=== PATIENT | male | born 1995 | race Caucasian/White ===

== ENCOUNTER 2021-03-07 11:28 | Observation (INO) ==
[2021-03-07 12:16] LABS: Basophils % 0.2 %; Hematocrit 41.8 % (37.5-50.1); Hemoglobin 14.1 g/dL (12.9-16.9); Immature Granulocytes % 0.5 % (0-4); Lymphocytes # 0.7 K/mcL (0.6-4.6); Lymphocytes % 5.7 %; Mean Corpuscular HGB Conc 33.7 g/dL (31.6-35.5); Mean Corpuscular Hemoglobin 30.9 pg (28.0-33.3); Mean Corpuscular Volume 91.7 fL (83.0-100.0); Monocytes # 1.2 K/mcL (0.0-1.3); Monocytes % 8.8 %; Platelet Count 303 K/mcL (140-400); Red Blood Count 4.56 M/mcL (4.19-5.50); Red Cell Distribution Width 11.5 % (11.5-14.5); Segmented Neutrophils % 84.8 %
[2021-03-07 12:44] LABS: BUN/Creatinine Ratio 18 (6-26); Blood Urea Nitrogen 17 mg/dL (6-20); Calcium 9.5 mg/dL (8.6-10.3); Carbon Dioxide 27 mEq/L (23-29); Chloride 101 mEq/L (98-107); Glucose 185 mg/dL (70-105); Osmolality,Calculated 298 (280-300); Potassium 3.7 mEq/L (3.5-5.1); Sodium 141 mEq/L (136-145); Troponin I < 0.03 ng/mL (< 0.04); eGFR For African Americans > 60 (> 60); eGFR For Non-African Americans > 60 (> 60)
[2021-03-07] MEDS ORDERED: 0.9 % Sodium Chloride 1,000 ML IVC ONE ×3 (13:11→13:16)
[2021-03-07] MEDS ORDERED: Ondansetron ODT 4 MG TAB.RAPDIS SL PRN (13:16)
[2021-03-07] MEDS ORDERED: Acetaminophen 325 MG TABLET PO PRN (13:16)
[2021-03-07] MEDS ORDERED: Naloxone 0.4 MG/ML INJ IVP PRN (13:16)
[2021-03-07] MEDS ORDERED: Mag Hydrox/Al Hydrox/Simeth 30 ML UDC PO PRN (13:16)
[2021-03-07] MEDS ORDERED: MOM Conc 10 ML UD.LIQ PO PRN (13:16)
[2021-03-07] MEDS ORDERED: Melatonin 3 MG TABLET PO PRN (13:16)
[2021-03-07] MEDS ORDERED: levoFLOXacin 750 MG/150 ML 750 MG/150 ML BAG IVPB SCH (13:30)
[2021-03-07 15:59] LABS: Influenza A PCR Negative (Negative); Influenza B PCR Negative (Negative); Resp. Syncytial Virus PCR Negative (Negative); SARS-CoV-2 by PCR (In House) Negative (Negative)
[2021-03-07] MEDS ORDERED: Clindamycin 900 MG/50 ML 900 MG/50 ML IV.SOLN IVPB ONE (18:29)
[2021-03-07] MEDS: Ringers Solution, Lactated 1,000 ML IVC SCH (19:33)
[2021-03-07 20:08] LABS: Amphetamine Screen,Urine Positive ng/mL (Cutoff=1000); Barbiturate Screen,Urine Negative ng/mL (Cutoff=200); Benzodiazepines Screen,Urine Negative ng/mL (Cutoff=200); Cannabinoid Screen,Urine Positive ng/mL (Cutoff = 50); Cocaine Screen,Urine Negative ng/mL (Cutoff= 300); Opiate Screen,Urine Negative ng/mL (Cutoff=300); Phencyclidine Screen,Urine Negative ng/mL (Cutoff=25)
[2021-03-08 01:35] LABS: Hematocrit 38.7 % (37.5-50.1); Mean Corpuscular HGB Conc 33.6 g/dL (31.6-35.5); Mean Corpuscular Hemoglobin 30.5 pg (28.0-33.3); Mean Corpuscular Volume 90.8 fL (83.0-100.0); Mean Platelet Volume 10.4 fL (9.4-12.4); Platelet Count 231 K/mcL (140-400); Red Blood Count 4.26 M/mcL (4.19-5.50); Red Cell Distribution Width 11.4 % (11.5-14.5); White Blood Count 10.7 K/mcL (4.3-11.1)
[2021-03-08 01:53] LABS: BUN/Creatinine Ratio 18 (6-26); Blood Urea Nitrogen 13 mg/dL (6-20); Calcium 8.3 mg/dL (8.6-10.3); Carbon Dioxide 28 mEq/L (23-29); Chloride 99 mEq/L (98-107); Glucose 80 mg/dL (70-105); Magnesium 1.4 mg/dL (1.6-2.6); Osmolality,Calculated 277 (280-300); Potassium 4.2 mEq/L (3.5-5.1); Sodium 134 mEq/L (136-145); eGFR For African Americans > 60 (> 60); eGFR For Non-African Americans > 60 (> 60)
[2021-03-08] MEDS ORDERED: *HR* LORazepam 2 MG/ML VIAL IVP ONE (03:09)
[2021-03-08] MEDS: Ringers Solution, Lactated 1,000 ML IVC SCH (05:36)
[2021-03-08] MEDS ORDERED: *HR* Enoxaparin 40 MG/0.4 ML SYRINGE SQ SCH (07:00)
[2021-03-08 07:50] VITALS: BP 152/76
[2021-03-08] MEDS ORDERED: Ampicillin/Sulbactam 3,000 MG in 0.9 % Sodium Chloride Mini Bag 100 ML IVPB SCH (08:00)
[2021-03-08] MEDS ORDERED: *HR* LORazepam 1 MG TABLET PO ONE (08:04)
[2021-03-08] MEDS ORDERED: *HR* LORazepam 2 MG/ML VIAL IM PRN (08:04)
[2021-03-08] MEDS ORDERED: FLUoxetine HCl 10 MG CAPSULE PO SCH (09:00)
== END 2021-03-08 10:10 | disposition left against medical advice (07) ==
LOC: 2NNU 11:28 → EMEROOARM 11:28 → SUATTDRO 16:15 → 2NNU 17:18
PROVIDERS: ADMIT Internal Medicine; ATTEND Internal Medicine

== ENCOUNTER 2021-03-08 11:10 | Observation (INO) ==
[2021-03-08 11:52] LABS: Hematocrit 37.9 % (37.5-50.1); Mean Corpuscular HGB Conc 34.3 g/dL (31.6-35.5); Mean Corpuscular Hemoglobin 30.4 pg (28.0-33.3); Mean Corpuscular Volume 88.6 fL (83.0-100.0); Mean Platelet Volume 9.9 fL (9.4-12.4); Monocytes # 0.9 K/mcL (0.0-1.3); Platelet Count 227 K/mcL (140-400); Red Blood Count 4.28 M/mcL (4.19-5.50); Red Cell Distribution Width 11.3 % (11.5-14.5); White Blood Count 11.4 K/mcL (4.3-11.1)
[2021-03-08 12:12] LABS: BUN/Creatinine Ratio 23 (6-26); Blood Urea Nitrogen 15 mg/dL (6-20); Calcium 9.1 mg/dL (8.6-10.3); Carbon Dioxide 28 mEq/L (23-29); Chloride 99 mEq/L (98-107); Glucose 96 mg/dL (70-105); Osmolality,Calculated 275 (280-300); Potassium 4.4 mEq/L (3.5-5.1); Sodium 132 mEq/L (136-145); eGFR For African Americans > 60 (> 60); eGFR For Non-African Americans > 60 (> 60)
[2021-03-08 12:34] LABS: Lymphocytes # 1.8 K/mcL (0.6-4.6); Neutrophils # 8.7 K/mcL (1.6-8.9); Platelet Estimate Normal (Normal); Reactive Lymphocytes Present (Not Present)
[2021-03-08 12:55] LABS: Bilirubin,Urine Negative (Negative); Blood,Urine Small (Negative); Clarity,Urine Clear (Clear); Color,Urine Yellow (Yellow); Glucose,Urine (UA) Normal (Normal); Ketones,Urine 100 mg/dL (Negative); Leukocyte Esterase,Urine Negative (Negative); Mucus,Urine Few per lpf (None-Few); Nitrite,Urine Negative (Negative); Protein,Urine 30 mg/dL (Neg-Trace); Specific Gravity,Urine 1.026 (1.010-1.025); Urobilinogen,Urine Normal (Normal); WBC,Urine 0-3 per hpf (0-3)
[2021-03-08] MEDS ORDERED: Ondansetron 4 MG/2 ML VIAL IVP PRN (13:13)
[2021-03-08] MEDS ORDERED: Melatonin 3 MG TABLET PO PRN (13:13)
[2021-03-08] MEDS ORDERED: Naloxone 0.4 MG/ML INJ IVP PRN (13:13)
[2021-03-08] MEDS ORDERED: Acetaminophen 325 MG TABLET PO PRN (13:13)
[2021-03-08] MEDS ORDERED: Mag Hydrox/Al Hydrox/Simeth 30 ML UDC PO PRN (13:13)
[2021-03-08] MEDS ORDERED: MOM Conc 10 ML UD.LIQ PO PRN (13:13)
[2021-03-08] MEDS ORDERED: levoFLOXacin 750 MG/150 ML 750 MG/150 ML BAG IVPB SCH (13:30)
[2021-03-08 13:40] LABS: Amphetamine Screen,Urine Positive ng/mL (Cutoff=1000); Barbiturate Screen,Urine Negative ng/mL (Cutoff=200); Benzodiazepines Screen,Urine Negative ng/mL (Cutoff=200); Cannabinoid Screen,Urine Positive ng/mL (Cutoff = 50); Cocaine Screen,Urine Negative ng/mL (Cutoff= 300); Opiate Screen,Urine Negative ng/mL (Cutoff=300); Phencyclidine Screen,Urine Negative ng/mL (Cutoff=25)
[2021-03-08] MEDS ORDERED: *HR* LORazepam 2 MG/ML VIAL IVP PRN (14:24)
[2021-03-08] MEDS ORDERED: Haloperidol Lactate 5 MG/ML VIAL IVP ONE (16:47)
[2021-03-08 16:52] LABS: Adenovirus Not Detected (Not Detect); Bordetella Pertussis Not Detected (Not Detect); Chlamydophila pneumoniae Not Detected (Not Detect); Coronavirus 229E Not Detected (Not Detect); Coronavirus HKU1 Not Detected (Not Detect); Coronavirus NL63 Not Detected (Not Detect); Coronavirus OC43 Not Detected (Not Detect); Human Metapneumovirus Not Detected (Not Detect); Human Rhinovirus/Enterovirus Not Detected (Not Detect); Influenza A Subtype 2009 H1 Not Detected (Not Detect); Influenza B Not Detected (Not Detect); Mycoplasma pneumoniae Not Detected (Not Detect); Parainfluenza Virus 1 Not Detected (Not Detect); Parainfluenza Virus 2 Not Detected (Not Detect); Parainfluenza Virus 3 Not Detected (Not Detect); Parainfluenza Virus 4 Not Detected (Not Detect); Respiratory Syncytial Virus Not Detected (Not Detect); SARS-CoV-2 Not Detected (Not Detect)
[2021-03-09 03:23] VITALS: BP 157/100
[2021-03-09] MEDS ORDERED: *HR* Enoxaparin 40 MG/0.4 ML SYRINGE SQ SCH (07:00)
[2021-03-09] MEDS ORDERED: FLUoxetine HCl 10 MG CAPSULE PO SCH (09:00)
== END 2021-03-09 03:25 | disposition left against medical advice (07) ==
LOC: EMEROOARM 11:10 → 2NNU 11:10
PROVIDERS: ADMIT Internal Medicine; ATTEND Internal Medicine